=== PATIENT | male | born 1995 | race Caucasian/White ===

== ENCOUNTER 2023-04-29 11:35 | Emergency (ER) | payer OTHER ==
[~2023-04-29] VITALS: Ht 177.8 cm; Wt 102.7 kg
[2023-04-29] MEDS ORDERED: IBUPROFEN 600MG TAB PO ONE (12:30)
[2023-04-29] MEDS ORDERED: IBUP-1022 PO (13:38)
[2023-04-29 14:13] VITALS: BP 144/96; TEMP 99.1; O2SAT 97
== END 2023-04-29 14:23 | disposition home or self-care (01) ==
LOC: EDBD 11:35 → M ED 11:35
DX: S50.01XA Contusion of right elbow, initial encounter (principal); V89.2XXA Person injured in unspecified motor-vehicle accident, traffic, initial encounter; Y92.9 Unspecified place or not applicable; Y93.9 Activity, unspecified; Y99.9 Unspecified external cause status